=== PATIENT | male | born 1970 | race Caucasian/White ===

== ENCOUNTER → 2023-05-10 10:17 | Outpatient (REF) | payer OTHER, SELFPAY ==
[2023-05-11 15:55] LABS: Mumps Virus IgG Negative; Rubeola (Measles) IgG Positive; Varicella Zoster IgG (VZV) Positive
[2023-05-11 19:04] LABS: Rubella Positive
[2023-05-12 05:32] LABS: Hepatitis B Surface Antibody Negative
[2023-05-13 08:30] LABS: Quantiferon Mitogen minus NIL 8.03 IU/mL; Quantiferon NIL 0.02 IU/mL; Quantiferon TB Gold Plus Negative (Negative)
== END ==
LOC: OHS 10:17
PROVIDERS: ATTENDING PHYSICIAN Nurse Practitioner Family
DX: Z23 Encounter for immunization (principal)
CPT/HCPCS: 36415; 86480; 86706; 86735; 86762; 86765; 86787